=== PATIENT | female | born 1930 | race Caucasian/White ===

== ENCOUNTER → 2017-02-13 | Outpatient (CLI) | payer MEDICARE, BC | LOC: RAD 12:00 → VAS 17:17 | DX: R06.00 Dyspnea, unspecified (principal); I34.0 Nonrheumatic mitral (valve) insufficiency; I07.1 Rheumatic tricuspid insufficiency ==

== ENCOUNTER → 2017-02-15 | Outpatient (CLI) | payer MEDICARE, BC | LOC: CARDLAB 09:23 → CARDREHAB 09:23 → CARDLAB 11:42 | DX: R06.00 Dyspnea, unspecified (principal) | CPT/HCPCS: A9500 ==

== ENCOUNTER → 2017-08-13 | Outpatient (CLI) | payer MEDICARE, BC | LOC: RAD 14:18 | DX: I65.23 Occlusion and stenosis of bilateral carotid arteries (principal) ==

== ENCOUNTER → 2018-02-24 | Outpatient (CLI) | payer MEDICARE, BC ==
[2018-02-24 13:07] LABS: POTASSIUM 4.5 mmol/L (3.6-5.0)
[2018-02-24 14:06] VITALS: BP 176/75
== END ==
LOC: LAB 12:18
PROVIDERS: Family Medicine
DX: R33.9 Retention of urine, unspecified (principal)

== ENCOUNTER 2018-02-28 20:44 | Emergency (ER) | payer MEDICARE, BC ==
[~2018-02-28] VITALS: Ht 152.4 cm; Wt 63.6 kg
[2018-02-28 22:06] LABS: BUN/CREATININE RATIO 15.7 (6.0-26.0); CALCIUM 9.4 mg/dL (8.4-10.2); POTASSIUM 4.1 mmol/L (3.6-5.0)
[2018-02-28] MEDS ORDERED: PERCOCET 325 MG1 TA2 PO (22:30)
[2018-02-28 22:39] VITALS: BP 140/59
[2018-02-28] MEDS ORDERED: NEURONTIN300 M1 PO (22:47)
[2018-02-28] MEDS ORDERED: COUMADIN 22.5 MG/TAB PO (22:47)
[2018-02-28] MEDS ORDERED: TOPROL XL 25MG25 MG PO (22:48)
[2018-02-28] MEDS ORDERED: KLOR-CON SPRIN10 MEQ PO (22:48)
[2018-02-28] MEDS ORDERED: LIPITOR 10M10 MG/TAB PO (22:48)
[2018-02-28] MEDS ORDERED: LASIX20 M1 PO (22:48)
== END 2018-02-28 22:39 | disposition home or self-care (01) ==
LOC: ED 20:44
PROVIDERS: Family Medicine
DX: S22.41XA Multiple fractures of ribs, right side, initial encounter for closed fracture (principal); R42 Dizziness and giddiness; T42.6X5A Adverse effect of other antiepileptic and sedative-hypnotic drugs, initial encounter; M54.5 Low back pain; W19.XXXA Unspecified fall, initial encounter; Y92.009 Unspecified place in unspecified non-institutional (private) residence as the place of occurrence of the external cause; I73.9 Peripheral vascular disease, unspecified; G62.9 Polyneuropathy, unspecified; Z79.01 Long term (current) use of anticoagulants; Z87.891 Personal history of nicotine dependence; Z95.1 Presence of aortocoronary bypass graft

== ENCOUNTER → 2018-05-27 | Outpatient (CLI) | payer MEDICARE, BC ==
[~2018-05-27] MED LIST: COUMADIN 22.5 MG/TAB PO; KLOR-CON SPRIN10 MEQ PO; LASIX20 M1 PO; LIPITOR 10M10 MG/TAB PO; NEURONTIN300 M1 PO; PERCOCET 325 MG1 TA2 PO; TOPROL XL 25MG25 MG PO
== END ==
LOC: RAD 09:38
DX: R01.1 Cardiac murmur, unspecified (principal); I48.0 Paroxysmal atrial fibrillation; I25.10 Atherosclerotic heart disease of native coronary artery without angina pectoris

== ENCOUNTER 2018-07-27 10:24 | Emergency (ER) | payer MEDICARE, BC ==
[~2018-07-27] VITALS: Wt 64.1 kg
[2018-07-27] MEDS ORDERED: ASPIRIN 81M81 MG/TA2 PO (10:36)
[2018-07-27] MEDS ORDERED: TYLENOL EXTRA500 M2 PO (10:37)
[2018-07-27] MEDS ORDERED: TYLENOL PM EX-1 EACH PO (10:37)
[2018-07-27] MEDS ORDERED: ZYRTEC ALLERGY10 MG PO (10:37)
[2018-07-27] MEDS ORDERED: DRAMAMINE LESS25 MG PO (10:38)
[2018-07-27] MEDS ORDERED: KRILL OIL500 MG PO (10:38)
[2018-07-27] MEDS ORDERED: POTASSIUM CHLO10 ME7 PO (10:39)
[2018-07-27] MEDS ORDERED: MELATONIN5 M3 PO (10:39)
[2018-07-27 10:52] LABS: EOS # 0.1 (0.04-0.40); EOS % 1.8 % (1.0-5.0); HEMATOCRIT 39.5 % (37.0-47.0); MEAN CELL VOLUME 92 fl (78-100); MEAN CORPUSCULAR HEMOGLOBIN 30 pg (27-31); MEAN CORPUSCULAR HGB CONC 33 g/dL (33-37); MONO # 0.5 (0.20-0.80); NEU # 4.9 (1.40-6.50); PLATELET COUNT 167 K/mm3 (130-400); RED CELL DISTRIBUTION WIDTH 12.2 % (11.5-14.5); WHITE BLOOD COUNT 7.6 K/mm3 (4.8-10.8)
[2018-07-27 11:07] LABS: ALBUMIN 3.9 g/dL (3.5-5.0); CALCIUM 9.7 mg/dL (8.4-10.2); POTASSIUM 4.5 mmol/L (3.6-5.0); TOTAL BILIRUBIN 0.6 mg/dL (0.2-1.3); TOTAL PROTEIN 6.8 g/dL (6.3-8.2)
[2018-07-27 11:15] LABS: PROTHROMBIN TIME 19.5 SECONDS (9.0-12.0)
[2018-07-27 15:05] VITALS: BP 128/56
== END 2018-07-27 15:02 | disposition home or self-care (01) ==
LOC: ED 10:24
PROVIDERS: Family Medicine
DX: M94.0 Chondrocostal junction syndrome [Tietze] (principal); I51.7 Cardiomegaly; Z95.0 Presence of cardiac pacemaker; I48.91 Unspecified atrial fibrillation; E78.5 Hyperlipidemia, unspecified; Z79.01 Long term (current) use of anticoagulants; Z95.1 Presence of aortocoronary bypass graft

== ENCOUNTER 2019-02-06 15:12 | Emergency (ER) | payer MEDICARE, BC ==
[~2019-02-06 15:12] MED LIST changes: +ASPIRIN 81M81 MG/TA2 PO; +DRAMAMINE LESS25 MG PO; +KRILL OIL500 MG PO; +MELATONIN5 M3 PO; +POTASSIUM CHLO10 ME7 PO; +TYLENOL EXTRA500 M2 PO; +TYLENOL PM EX-1 EACH PO; +ZYRTEC ALLERGY10 MG PO
[2019-02-06 15:15] VITALS: BP 143/60
[2019-02-06] MEDS ORDERED: ATORVASTATIN CA10 MG PO (15:35)
[2019-02-06] MEDS ORDERED: MULTIVITAMIN1 SGL PO (15:36)
[2019-02-06] MEDS ORDERED: GABAPENTIN100 MG PO (15:36)
[2019-02-06] MEDS ORDERED: MIRALAX17 GM PO (15:37)
[2019-02-06] MEDS ORDERED: POTASSIUM CHLO10 ME5 PO (15:37)
[2019-02-06] MEDS ORDERED: NITROGLYCERIN0.4 M1 SL (15:37)
[2019-02-06 15:48] LABS: EOS # 0.1 (0.04-0.40); EOS % 2.7 % (1.0-5.0); HEMATOCRIT 37.9 % (37.0-47.0); LYMPH# 1.8 (1.50-4.00); MEAN CELL VOLUME 94 fl (78-100); MEAN CORPUSCULAR HEMOGLOBIN 30 pg (27-31); MEAN CORPUSCULAR HGB CONC 32 g/dL (33-37); MEAN PLATELET VOLUME 10.6 fl (7.4-10.4); MONO # 0.6 (0.20-0.80); NEU # 2.6 (1.40-6.50); PLATELET COUNT 213 K/mm3 (130-400); RED BLOOD COUNT 4.05 M/mm3 (4.10-5.30); RED CELL DISTRIBUTION WIDTH 12.1 % (11.5-14.5); WHITE BLOOD COUNT 5.2 K/mm3 (4.8-10.8)
[2019-02-06 15:54] LABS: PROTHROMBIN TIME 13.8 SECONDS (9.0-12.0)
[2019-02-06 16:27] LABS: ALBUMIN 3.8 g/dL (3.5-5.0); CALCIUM 9.4 mg/dL (8.4-10.2); POTASSIUM 4.1 mmol/L (3.6-5.0); TOTAL BILIRUBIN 0.3 mg/dL (0.2-1.3); TOTAL PROTEIN 6.5 g/dL (6.3-8.2)
[2019-02-06 17:12] LABS: D-DIMER 2.28 mg/L FEU (0.15-0.50)
== END 2019-02-06 19:20 | disposition home or self-care (01) ==
LOC: ED 15:12
PROVIDERS: Nurse Practitioner Primary Care
DX: R07.9 Chest pain, unspecified (principal); T45.515A Adverse effect of anticoagulants, initial encounter; I25.10 Atherosclerotic heart disease of native coronary artery without angina pectoris; I10 Essential (primary) hypertension; F17.210 Nicotine dependence, cigarettes, uncomplicated; E78.5 Hyperlipidemia, unspecified; Z95.0 Presence of cardiac pacemaker; Z90.49 Acquired absence of other specified parts of digestive tract; Z90.710 Acquired absence of both cervix and uterus; Z79.82 Long term (current) use of aspirin; Z79.01 Long term (current) use of anticoagulants; Z88.0 Allergy status to penicillin; Z88.1 Allergy status to other antibiotic agents

== ENCOUNTER → 2019-08-13 | Day surgery (SDC) | payer MEDICARE, BC ==
[~2019-08-13] MED LIST changes: +ATORVASTATIN CA10 MG PO; +GABAPENTIN100 MG PO; +MIRALAX17 GM PO; +MULTIVITAMIN1 SGL PO; +NITROGLYCERIN0.4 M1 SL; +POTASSIUM CHLO10 ME5 PO
== END ==
LOC: MSO 08:36
DX: Z12.11 Encounter for screening for malignant neoplasm of colon (principal); K57.30 Diverticulosis of large intestine without perforation or abscess without bleeding; K62.4 Stenosis of anus and rectum; E78.00 Pure hypercholesterolemia, unspecified; K58.0 Irritable bowel syndrome with diarrhea; M19.90 Unspecified osteoarthritis, unspecified site; I10 Essential (primary) hypertension; I48.91 Unspecified atrial fibrillation; I73.9 Peripheral vascular disease, unspecified; Z87.891 Personal history of nicotine dependence; Z86.010 Personal history of colon polyps; Z88.1 Allergy status to other antibiotic agents; Z95.0 Presence of cardiac pacemaker; Z79.01 Long term (current) use of anticoagulants; Z79.82 Long term (current) use of aspirin; Z95.1 Presence of aortocoronary bypass graft; Z90.710 Acquired absence of both cervix and uterus; Z95.2 Presence of prosthetic heart valve; Z90.49 Acquired absence of other specified parts of digestive tract; Z90.89 Acquired absence of other organs
CPT/HCPCS: 00812; J2704; J7120

== ENCOUNTER 2020-06-27 15:53 | Observation (INO) | payer MEDICARE ==
[~2020-06-27] VITALS: Ht 154.9 cm; Wt 58.3 kg
[2020-06-27 16:39] LABS: EOS # 0.1 (0.04-0.40); EOS % 1.2 % (1.0-5.0); HEMATOCRIT 37.4 % (37.0-47.0); HEMOGLOBIN 11.7 g/dL (12.5-16.0); LYMPH# 1.8 (1.50-4.00); MEAN CELL VOLUME 94 fl (78-100); MEAN CORPUSCULAR HEMOGLOBIN 30 pg (27-31); MEAN CORPUSCULAR HGB CONC 31 g/dL (33-37); MEAN PLATELET VOLUME 11.3 fl (7.4-10.4); MONO # 0.7 (0.20-0.80); PLATELET COUNT 146 K/mm3 (130-400); RED BLOOD COUNT 3.96 M/mm3 (4.10-5.30); RED CELL DISTRIBUTION WIDTH 13.1 % (11.5-14.5); WHITE BLOOD COUNT 6.7 K/mm3 (4.8-10.8)
[2020-06-27 16:49] LABS: ALBUMIN 3.6 g/dL (3.4-4.8)
[2020-06-27 16:50] LABS: POTASSIUM 4.5 mmol/L (3.5-5.1)
[2020-06-27 16:51] LABS: CALCIUM 9.4 mg/dL (8.3-10.5)
[2020-06-27 16:54] LABS: TOTAL BILIRUBIN 0.3 mg/dL (0.2-1.2)
[2020-06-27] MEDS ORDERED: GOOD NEIGHBOR500 M2 PO (17:20)
[2020-06-27] MEDS ORDERED: CARVEDILOL12.5 MG PO (17:22)
[2020-06-27] MEDS ORDERED: CENTRUM SILVER1 EACH PO (17:28)
[2020-06-27] MEDS ORDERED: VALACYCLOVIR1 GM PO (17:30)
[2020-06-27 17:40] LABS: PROTHROMBIN TIME 39.9 SECONDS (9.0-12.0)
[2020-06-27 17:42] LABS: URINE APPEARANCE HAZY; URINE COLOR YELLOW
[2020-06-27 17:43] LABS: URINE BILIRUBIN NEGATIVE (NEGATIVE); URINE BLOOD 250 ery/uL (NEGATIVE); URINE GLUCOSE NEGATIVE (NEGATIVE); URINE KETONE NEGATIVE (NEGATIVE); URINE LEUKOCYTE ESTERASE 1+ (NEGATIVE); URINE NITRATE POSITIVE (NEGATIVE); URINE PROTEIN(semi-quant) 1+ mg/dL (NEGATIVE); URINE UROBILINOGEN NORMAL (NORMAL)
[2020-06-27 18:50] VITALS: BP 148/61
[2020-06-27 19:22] VITALS: BP 148/61
[2020-06-27 22:00] VITALS: BP 118/60
[2020-06-28 02:00] VITALS: BP 117/57
[2020-06-28 05:44] VITALS: BP 90/52
[2020-06-28 05:48] LABS: EOS # 0.2 (0.04-0.40); HEMATOCRIT 32.7 % (37.0-47.0); HEMOGLOBIN 10.3 g/dL (12.5-16.0); LYMPH# 1.8 (1.50-4.00); MEAN CELL VOLUME 94 fl (78-100); MEAN CORPUSCULAR HEMOGLOBIN 30 pg (27-31); MEAN CORPUSCULAR HGB CONC 32 g/dL (33-37); MEAN PLATELET VOLUME 11.1 fl (7.4-10.4); MONO # 0.5 (0.20-0.80); NEU # 2.4 (1.40-6.50); PLATELET COUNT 138 K/mm3 (130-400); RED BLOOD COUNT 3.47 M/mm3 (4.10-5.30); RED CELL DISTRIBUTION WIDTH 12.8 % (11.5-14.5); WHITE BLOOD COUNT 4.8 K/mm3 (4.8-10.8)
[2020-06-28 05:53] LABS: POTASSIUM 4.5 mmol/L (3.5-5.1)
[2020-06-28 05:55] LABS: CALCIUM 8.8 mg/dL (8.3-10.5)
[2020-06-28 05:58] LABS: TOTAL BILIRUBIN 0.2 mg/dL (0.2-1.2)
[2020-06-28 06:19] LABS: PROTHROMBIN TIME 37.2 SECONDS (9.0-12.0)
[2020-06-28 09:38] VITALS: BP 125/79
[2020-06-28 14:11] VITALS: BP 103/56
[2020-06-28 18:08] VITALS: BP 123/68
[2020-06-28 21:39] VITALS: BP 112/58
[2020-06-29 02:04] VITALS: BP 124/57
[2020-06-29 05:34] VITALS: BP 107/66
[2020-06-29 06:08] LABS: POTASSIUM 4.4 mmol/L (3.5-5.1)
[2020-06-29 06:09] LABS: CALCIUM 9.2 mg/dL (8.3-10.5); PROTHROMBIN TIME 20.6 SECONDS (9.0-12.0)
[2020-06-29] MEDS ORDERED: CEFDINIR300 MG PO (08:55)
[2020-06-29 10:07] VITALS: BP 109/69
== END 2020-06-29 11:45 | disposition home or self-care (01) ==
LOC: ED 15:53 → MED/SURG 18:24
PROVIDERS: Nurse Practitioner Primary Care; ADMIT Nurse Practitioner
DX: N39.0 Urinary tract infection, site not specified (principal); D68.59 Other primary thrombophilia; Z79.82 Long term (current) use of aspirin; I49.5 Sick sinus syndrome; I25.10 Atherosclerotic heart disease of native coronary artery without angina pectoris; Z95.1 Presence of aortocoronary bypass graft; I10 Essential (primary) hypertension; E78.5 Hyperlipidemia, unspecified; I48.0 Paroxysmal atrial fibrillation; Z79.01 Long term (current) use of anticoagulants; I73.9 Peripheral vascular disease, unspecified; I34.0 Nonrheumatic mitral (valve) insufficiency; Z90.49 Acquired absence of other specified parts of digestive tract; Z90.710 Acquired absence of both cervix and uterus; Z85.828 Personal history of other malignant neoplasm of skin; Z87.891 Personal history of nicotine dependence; Z88.1 Allergy status to other antibiotic agents; Z88.0 Allergy status to penicillin
CPT/HCPCS: G0378; J0696; J7030

== ENCOUNTER → 2020-07-08 | Outpatient (CLI) | payer MEDICARE ==
[2020-06-29 10:07] VITALS: BP 109/69
[~2020-07-08] MED LIST changes: +CARVEDILOL12.5 MG PO; +CEFDINIR300 MG PO; +CENTRUM SILVER1 EACH PO; +GOOD NEIGHBOR500 M2 PO; +VALACYCLOVIR1 GM PO
== END ==
LOC: RAD 08:48
DX: M79.89 Other specified soft tissue disorders (principal); R59.0 Localized enlarged lymph nodes
CPT/HCPCS: Q9967